=== PATIENT | male | born 1955 | race African-American/Black ===

== ENCOUNTER 2017-09-25 06:38 | Day surgery (SDC) | payer OTHER ==
--- NOTE | 2017-09-17 09:52 | EKG REPORT ---
SEVERITY:- NORMAL ECG - SINUS RHYTHM : Confirmed by: Yanira Bhat MD 17-Sep-2017 09:52:00
[2017-09-17 10:07] LABS: APPEARANCE,URINE CLEAR; BILIRUBIN,URINE NEGATIVE (NEGATIVE); COLOR,URINE YELLOW; GLUCOSE, URINE NEGATIVE (NEGATIVE); KETONES,URINE NEGATIVE (NEGATIVE); LEUKOCYTE ESTERASE,URINE TRACE (NEGATIVE); NITRITE,URINE NEGATIVE (NEGATIVE); PROTEIN,URINE NEGATIVE (NEGATIVE); URINE SPECIFIC GRAVITY 1.015
[2017-09-17 10:07] LABS: HEMATOCRIT 42.3 % (37.9-51.0); HEMOGLOBIN 14.6 g/dL (13.5-17.0); MEAN CORPUSCULAR HEMOGLOBIN 31.2 pg (27.0-33.4); MEAN CORPUSCULAR HGB CONC 34.6 g/dL (32.0-36.0); MEAN CORPUSCULAR VOLUME 90 fl (80-97); PLATELET COUNT 265 10^3/uL (150-450); RED CELL DISTRIBUTION WIDTH 12.6 % (11.5-14.0); WHITE BLOOD COUNT 6.6 10^3/uL (4.0-10.5)
--- NOTE | 2017-09-17 10:09 | RADIOLOGY REPORT (SQ) ---
EXAM DESCRIPTION: CHEST PA/LATERAL COMPLETED DATE/TIME: 09/17/2017 9:48 am REASON FOR STUDY: PRE OP COMPARISON: None. EXAM PARAMETERS: NUMBER OF VIEWS: two views TECHNIQUE: Digital Frontal and Lateral radiographic views of the chest acquired. RADIATION DOSE: NA LIMITATIONS: none FINDINGS: LUNGS AND PLEURA: No opacities, masses or pneumothorax. No pleural effusion. MEDIASTINUM AND HILAR STRUCTURES: No masses or contour abnormalities. HEART AND VASCULAR STRUCTURES: Heart normal size. No evidence for failure. BONES: No acute findings. HARDWARE: None in the chest. OTHER: No other significant finding. IMPRESSION: NO SIGNIFICANT RADIOGRAPHIC FINDING IN THE CHEST. TECHNICAL DOCUMENTATION: JOB ID: [id number] [employer]- All Rights Reserved Reading location - IP/workstation name: [email or web address]
[2017-09-17 10:41] LABS: ANION GAP 10 (5-19); BLOOD UREA NITROGEN 16 mg/dL (7-20); CALCIUM 9.8 mg/dL (8.4-10.2); CARBON DIOXIDE 29 mmol/L (22-30); CHLORIDE 105 mmol/L (98-107); GLUCOSE 90 mg/dL (75-110); POTASSIUM 3.9 mmol/L (3.6-5.0); SODIUM 143.7 mmol/L (137-145)
[~2017-09-25 06:38] MED LIST: CEFAZOLIN SODIUM 2 GM in DEXTROSE 5%-WATER 100 ML IV PRN; LACTATED RINGERS 1000 ML IV PRN; LIDOCAINE 0.5% INJ-PF (5 MG/ML) 50 ML SDV SUBCUT PRN
[2017-09-25] MEDS ORDERED: BUPIVACAINE HCL 0.5 % INJ/PF 30 ML SDV ONE (07:08)
[2017-09-25] MEDS ORDERED: PROPOFOL INJ 200 MG/20 ML VIAL IV ONE (07:22)
[2017-09-25] MEDS ORDERED: KETAMINE HCL INJ 500 MG/10 ML VIAL ONE (07:22)
[2017-09-25] MEDS ORDERED: MIDAZOLAM 2 MG/2 ML INJ ONE (07:22)
[2017-09-25] MEDS ORDERED: FENTANYL CITRATE INJ/PF 100 MCG/2 ML AMPUL ONE (07:23)
[2017-09-25] MEDS ORDERED: BUPIVACAINE HCL 0.5%-EPI 1:200000 INJ/PF 30 ML VIAL ONE (07:31)
[2017-09-25] MEDS ORDERED: EPHEDRINE SULFATE INJ 50 MG/1 ML AMPULE ONE (09:05)
[2017-09-25] MEDS ORDERED: MEPERIDINE HCL/PF INJ 25 MG/1 ML DISP.SYRIN IV PRN (09:07)
[2017-09-25] MEDS ORDERED: FENTANYL CITRATE INJ/PF 100 MCG/2 ML AMPUL IV PRN ×3 (09:07)
[2017-09-25] MEDS ORDERED: PROMETHAZINE HCL INJ 25 MG/1 ML VIAL IV PRN ×2 (09:07)
[2017-09-25] MEDS ORDERED: OXYCODONE-ACETAMINOPHEN 5-325 MG TABLET PO PRN ×2 (09:07)
[2017-09-25] MEDS ORDERED: DIPHENHYDRAMINE HCL 50 MG/ML VIAL IV PRN (09:07)
[2017-09-25] MEDS ORDERED: TRANEXAMIC ACID INJ/PF 1,000 MG/10 ML SDV IV ONE (09:40)
--- NOTE | 2017-09-25 09:47 | Operative Report ---
Operative Report DATE OF SURGERY: 09/25/17 PREOPERATIVE DIAGNOSIS: Complicated left periarticular knee ganglion OPERATION: Excision of left periarticular knee ganglion SURGEON: CAMDEN RILEY ANESTHESIA: GA TISSUE REMOVED OR ALTERED: Ganglion to pathology ESTIMATED BLOOD LOSS: 25 PROCEDURE: With the patient supine position of the tip of left lower extremity is prepped and draped in sterile fashion. Limb was elevated for exsanguination tourniquet inflated 280 torr. A sigmoid type incision is made beginning in the popliteal fossa extending laterally and distally across the proximal lateral tibia and extending to the region of the tibial tubercle. Sharp dissection was carried incision down to the 25 cm multiloculated ganglion. The multiloculated ganglion is enucleated from superficial to deep. The peroneal nerve is identified coming behind the hamstring tendon and is protected throughout its course down to the fibula. The ganglion is excised. Its deep margin is the knee capsule. Its delivered from the field. The tourniquet is deflated. The wound is irrigated. Hemostasis obtained with electrocautery. A 15 Luis Armando drain is placed. The wound was then closed using Vicryl followed by nylon. A sterile compressive dressing was applied and the patient's return to PACU in satisfactory condition.
[2017-09-25] MEDS ORDERED: OXYCODONE HCL IR 5 MG TABLET PO PRN (10:28)
[2017-09-25] MEDS ORDERED: ONDANSETRON 4 MG TAB.RAPDIS SL PRN (10:29)
[2017-09-25] MEDS ORDERED: ALBUTEROL SULFATE 0.083% NEB 2.5 MG/3 ML AMPUL NEB ONE (10:29)
[2017-09-25] MEDS ORDERED: DEXAMETHASONE SOD PHOSPHATE INJ 4 MG/1 ML VIAL ONE (11:42)
[2017-09-25] MEDS ORDERED: GLYCOPYRROLATE 1 MG/5 ML SYRINGE ONE (11:42)
[2017-09-25] MEDS ORDERED: ONDANSETRON HCL INJ/PF 4 MG/2 ML SDV ONE (11:42)
[2017-09-25 12:37] VITALS: BP 131/88
== END 2017-09-25 12:25 | disposition home or self-care (01) ==
LOC: OROUT 06:38
PROVIDERS: ATTEND Orthopaedic Surgery
DX: M67.462 Ganglion, left knee (principal); M17.12 Unilateral primary osteoarthritis, left knee; I10 Essential (primary) hypertension; F17.210 Nicotine dependence, cigarettes, uncomplicated; Z79.899 Other long term (current) drug therapy
CPT/HCPCS: 93005; 36415 ×2; 84132; 85027; 80048; 81001; 88304 ×2; 71046; 93010; 27345; J2250; J3490 ×5; J0690; J1100; J3010; J2405; J2704; 1400

== ENCOUNTER → 2017-11-26 | Outpatient (CLI) | payer OTHER ==
[2017-11-26 09:58] LABS: ABSOLUTE MONOCYTES (AUTO) 0.9 10^3/uL (0.1-1.4); APPEARANCE,URINE SLIGHTLY-CLOUDY; BASOPHILS % (AUTO) 0.5 % (0-2); BILIRUBIN,URINE SMALL (NEGATIVE); COLOR,URINE YELLOW; EOSINOPHILS % (AUTO) 0.3 % (0-6); GLUCOSE, URINE NEGATIVE (NEGATIVE); HEMATOCRIT 39.9 % (37.9-51.0); HEMOGLOBIN 13.7 g/dL (13.5-17.0); KETONES,URINE NEGATIVE (NEGATIVE); LEUKOCYTE ESTERASE,URINE MODERATE (NEGATIVE); LYMPHOCYTES % (AUTO) 14.4 % (13-45); MEAN CORPUSCULAR HEMOGLOBIN 30.4 pg (27.0-33.4); MEAN CORPUSCULAR HGB CONC 34.3 g/dL (32.0-36.0); MEAN CORPUSCULAR VOLUME 89 fl (80-97); MONOCYTES % (AUTO) 13.2 % (3-13); NITRITE,URINE NEGATIVE (NEGATIVE); PLATELET COUNT 277 10^3/uL (150-450); PROTEIN,URINE NEGATIVE (NEGATIVE); RED BLOOD COUNT 4.49 10^6/uL (4.35-5.55); SEGMENTED NEUTROPHILS % (AUTO) 71.6 % (42-78); TOTAL CELLS COUNTED % (AUTO) 100 %; URINE SPECIFIC GRAVITY 1.024
[2017-11-26 10:29] LABS: ANION GAP 14 (5-19); BLOOD UREA NITROGEN 13 mg/dL (7-20); CALCIUM 9.7 mg/dL (8.4-10.2); CARBON DIOXIDE 26 mmol/L (22-30); CHLORIDE 103 mmol/L (98-107); GLUCOSE 107 mg/dL (75-110); POTASSIUM 3.4 mmol/L (3.6-5.0); SODIUM 142.8 mmol/L (137-145)
--- NOTE | 2017-11-26 10:50 | RADIOLOGY REPORT (SQ) ---
EXAM DESCRIPTION: CHEST PA/LATERAL COMPLETED DATE/TIME: 11/26/2017 9:40 am REASON FOR STUDY: PRE-OP COMPARISON: 09/17/2017 EXAM PARAMETERS: NUMBER OF VIEWS: two views TECHNIQUE: Digital Frontal and Lateral radiographic views of the chest acquired. RADIATION DOSE: NA LIMITATIONS: none FINDINGS: LUNGS AND PLEURA: No opacities, masses or pneumothorax. No pleural effusion. MEDIASTINUM AND HILAR STRUCTURES: No masses or contour abnormalities. HEART AND VASCULAR STRUCTURES: Heart normal size. No evidence for failure. BONES: No acute findings. HARDWARE: None in the chest. OTHER: No other significant finding. IMPRESSION: NO SIGNIFICANT RADIOGRAPHIC FINDING IN THE CHEST. TECHNICAL DOCUMENTATION: JOB ID: [id number] [employer]- All Rights Reserved Reading location - IP/workstation name: [email or web address]
--- NOTE | 2017-11-26 13:53 | EKG REPORT ---
SEVERITY:- NORMAL ECG - SINUS RHYTHM : Confirmed by: Mario Campo MD 26-Nov-2017 13:53:08
== END ==
LOC: OD 08:31
PROVIDERS: ATTEND Orthopaedic Surgery
DX: Z01.818 Encounter for other preprocedural examination (principal)
CPT/HCPCS: 36415; 71046; 80048; 81001; 85025; 93005; 93010

== ENCOUNTER → 2017-12-09 | Day surgery (SDC) | payer OTHER ==
[~2017-12-09] MED LIST changes: +CEFAZOLIN 2 GM/D5W RTU 2 GM/50 ML RTUPB IV PRN; -CEFAZOLIN SODIUM 2 GM in DEXTROSE 5%-WATER 100 ML IV PRN; -LACTATED RINGERS 1000 ML IV PRN; -LIDOCAINE 0.5% INJ-PF (5 MG/ML) 50 ML SDV SUBCUT PRN; +POTASSI CL 20 MEQ/50 ML RIDER 20 MEQ/50 ML RTUPB IV ONE; +POTASSIUM CHLORIDE 20 MEQ/50 ML RTU IV SCH
[2017-12-09 10:36] VITALS: BP 117/75
== END ==
LOC: OROUT 09:54
PROVIDERS: ATTEND Orthopaedic Surgery
DX: E87.6 Hypokalemia (principal)
CPT/HCPCS: 36415; 84132; J3480; J0690

== ENCOUNTER 2017-12-11 13:00 | Day surgery (SDC) | payer OTHER ==
[~2017-12-11 13:00] MED LIST changes: -POTASSI CL 20 MEQ/50 ML RIDER 20 MEQ/50 ML RTUPB IV ONE; -POTASSIUM CHLORIDE 20 MEQ/50 ML RTU IV SCH
[2017-12-11] MEDS ORDERED: KETAMINE HCL INJ 500 MG/10 ML VIAL ONE (15:26)
[2017-12-11] MEDS ORDERED: FENTANYL CITRATE INJ/PF 100 MCG/2 ML AMPUL ONE ×2 (15:26→16:58)
[2017-12-11] MEDS ORDERED: MIDAZOLAM 2 MG/2 ML INJ ONE (15:26)
[2017-12-11] MEDS ORDERED: ACETAMINOPHEN 1,000 MG/100 ML RTUPB IV ONE (15:27)
[2017-12-11] MEDS ORDERED: EPHEDRINE SULFATE INJ 50 MG/1 ML AMPULE ONE (15:27)
[2017-12-11] MEDS ORDERED: DEXMEDETOMIDINE INJ 80 MCG/20 ML VIAL IV ONE (15:27)
[2017-12-11] MEDS ORDERED: PROPOFOL INJ 200 MG/20 ML VIAL IV ONE (15:27)
[2017-12-11] MEDS ORDERED: BUPIVACAINE HCL 0.5 % INJ/PF 30 ML SDV ONE (15:29)
[2017-12-11] MEDS ORDERED: KETOROLAC TROMETHAMINE 60 MG/2 ML SDV ONE (15:31)
[2017-12-11] MEDS ORDERED: ONDANSETRON HCL INJ/PF 4 MG/2 ML SDV ONE (15:31)
[2017-12-11] MEDS ORDERED: DEXAMETHASONE SOD PHOSPHATE INJ 4 MG/1 ML VIAL ONE (15:31)
[2017-12-11] MEDS ORDERED: LIDOCAINE 1%/EPINEPHRINE INJ 20 ML VIAL ONE (15:35)
[2017-12-11] MEDS ORDERED: NORMAL SALINE IV PRN ×2 (15:45)
[2017-12-11] MEDS ORDERED: POTASSIUM CHLORIDE IV PRN ×2 (15:45)
[2017-12-11] MEDS ORDERED: BACITRACIN INJ 50,000 UNIT VIAL ONE (15:49)
[2017-12-11] MEDS ORDERED: PROMETHAZINE HCL INJ 25 MG/1 ML VIAL IV PRN ×2 (16:10)
[2017-12-11] MEDS ORDERED: MORPHINE SULFATE 10 MG/ML INJ IV PRN (16:10)
[2017-12-11] MEDS ORDERED: MEPERIDINE HCL/PF INJ 25 MG/1 ML DISP.SYRIN IV PRN (16:10)
[2017-12-11] MEDS ORDERED: DIPHENHYDRAMINE HCL 50 MG/ML VIAL IV PRN (16:10)
[2017-12-11] MEDS ORDERED: FENTANYL CITRATE INJ/PF 100 MCG/2 ML AMPUL IV PRN ×3 (16:10)
--- NOTE | 2017-12-11 16:38 | Discharge Summary ---
Discharge Summary (SDC) - Discharge Final Diagnosis: Left knee ganglion Date of Surgery: 12/11/17 Discharge Date: 12/11/17 Condition: Good Treatment or Instructions: Weightbearing as tolerated Prescriptions: Oxycodone HCl 5 mg PO Q6 #60 tablet Referrals: SEB CARLSON MD [Primary Care Provider] - Discharge Diet: As Tolerated, Regular Respiratory Treatments at Home: Deep Breathing/Coughing, Incentive Spirometer Discharge Activity: Balance Activity w/Rest, No Driving, No tub bath Activities Provided by Home Health Agency: [facility] Physical Therapy Adaptive Devices on Discharge: Rolling Walker, Bedside Commode Report the Following to Your Physician Immediately: Shortness of Breath, Fever over 101 Degrees, Drainage-Foul Smelling
--- NOTE | 2017-12-11 16:40 | Operative Report ---
Operative Report DATE OF SURGERY: 12/11/17 PREOPERATIVE DIAGNOSIS: Left knee synovial ganglion status post I&D now with synovial fluid leak OPERATION: Irrigation debridement, cultures, and repeat closure SURGEON: CAMDEN RILEY ANESTHESIA: GA TISSUE REMOVED OR ALTERED: Cultures to microbiology ESTIMATED BLOOD LOSS: Minimal PROCEDURE: The patient supine on the operating room table left lower extremity prepped and draped in sterile fashion. Limb was elevated for exsanguination tourniquet inflated 280 torr. A curvilinear incision is made around the lateral border of the knee in line with a previous surgical approach. The leaking sinus tract is excised elliptically. Cultures are sent. The wound is debrided meticulously. Is irrigated with 6 L of normal saline containing bacitracin. Subsequent closed with PDS and nylon. A sterile compressive dressing was applied and the patient's return to PACU in satisfactory condition.
[2017-12-11] MEDS ORDERED: OXYCODONE-ACETAMINOPHEN 5-325 MG TABLET ONE (17:44)
[2017-12-11] MEDS ORDERED: METOPROLOL TARTRATE PF/INJ 5 MG/5 ML SDV IV ONE (18:08)
[2017-12-11 18:58] VITALS: BP 139/84
== END 2017-12-11 18:50 | disposition home or self-care (01) ==
LOC: OROUT 13:00
PROVIDERS: ATTEND Orthopaedic Surgery
DX: M17.12 Unilateral primary osteoarthritis, left knee (principal); M67.462 Ganglion, left knee; I10 Essential (primary) hypertension; F17.210 Nicotine dependence, cigarettes, uncomplicated; M25.562 Pain in left knee; Z79.899 Other long term (current) drug therapy
CPT/HCPCS: 36415; 87070; 87205; 84132; 87075; 87077; 87186; 10060; J2250; J3490 ×6; J1100; J1885; J3010; J3480; J2405; J7050; J2704; J0690; J0131; 1400

== ENCOUNTER → 2017-12-19 | Outpatient (CLI) | payer OTHER ==
[2017-12-19 11:49] LABS: HEMATOCRIT 31.7 % (37.9-51.0); HEMOGLOBIN 10.5 g/dL (13.5-17.0); MEAN CORPUSCULAR HEMOGLOBIN 29.5 pg (27.0-33.4); MEAN CORPUSCULAR HGB CONC 33.2 g/dL (32.0-36.0); MEAN CORPUSCULAR VOLUME 89 fl (80-97); PLATELET COUNT 524 10^3/uL (150-450); RED BLOOD COUNT 3.58 10^6/uL (4.35-5.55); WHITE BLOOD COUNT 9.5 10^3/uL (4.0-10.5)
[2017-12-19 12:08] LABS: ANION GAP 11 (5-19); BLOOD UREA NITROGEN 17 mg/dL (7-20); CALCIUM 9.9 mg/dL (8.4-10.2); CARBON DIOXIDE 28 mmol/L (22-30); CHLORIDE 104 mmol/L (98-107); GLUCOSE 105 mg/dL (75-110); POTASSIUM 4.5 mmol/L (3.6-5.0)
[2017-12-19 12:54] LABS: APPEARANCE,URINE CLEAR; COLOR,URINE YELLOW
[2017-12-19 12:55] LABS: ADD MANUAL MICROSCOPIC YES; BILIRUBIN,URINE MODERATE (NEGATIVE); GLUCOSE, URINE NEGATIVE (NEGATIVE); KETONES,URINE NEGATIVE (NEGATIVE); LEUKOCYTE ESTERASE,URINE LARGE (NEGATIVE); NITRITE,URINE NEGATIVE (NEGATIVE); PROTEIN,URINE NEGATIVE (NEGATIVE); URINE SPECIFIC GRAVITY 1.027
[2017-12-19 12:56] LABS: CALCIUM OXALATE CRYSTALS,UR FEW /HPF; WBC,URINE 20-30 /HPF
== END ==
LOC: OD 11:04 → EDSTATUS 12-30 07:30
PROVIDERS: ATTEND Orthopaedic Surgery
DX: Z01.812 Encounter for preprocedural laboratory examination (principal); M17.12 Unilateral primary osteoarthritis, left knee
CPT/HCPCS: 36415; 80048; 81001; 85027

== ENCOUNTER → 2018-03-24 | Outpatient (CLI) | payer OTHER ==
--- NOTE | 2018-03-24 09:26 | RADIOLOGY REPORT (SQ) ---
EXAM DESCRIPTION: CHEST PA/LATERAL COMPLETED DATE/TIME: 03/24/2018 8:38 am REASON FOR STUDY: PRE-OP COMPARISON: None. EXAM PARAMETERS: NUMBER OF VIEWS: two views TECHNIQUE: Digital Frontal and Lateral radiographic views of the chest acquired. RADIATION DOSE: NA LIMITATIONS: none FINDINGS: LUNGS AND PLEURA: No opacities, masses or pneumothorax. No pleural effusion. MEDIASTINUM AND HILAR STRUCTURES: No masses or contour abnormalities. HEART AND VASCULAR STRUCTURES: Heart normal size. No evidence for failure. BONES: No acute findings. HARDWARE: None in the chest. OTHER: No other significant finding. IMPRESSION: NO SIGNIFICANT RADIOGRAPHIC FINDING IN THE CHEST. TECHNICAL DOCUMENTATION: JOB ID: [id number] [employer]- All Rights Reserved Reading location - IP/workstation name: [email or web address]
[2018-03-24 09:32] LABS: ABSOLUTE EOSINOPHILS # (AUTO) 0.1 10^3/uL (0.0-0.6); ABSOLUTE LYMPHOCYTES (AUTO) 1.4 10^3/uL (0.5-4.7); ABSOLUTE MONOCYTES (AUTO) 0.7 10^3/uL (0.1-1.4); ABSOLUTE NEUT (AUTO) 6.2 10^3/uL (1.7-8.2); BASOPHILS % (AUTO) 0.5 % (0-2); EOSINOPHILS % (AUTO) 0.7 % (0-6); HEMATOCRIT 29.1 % (37.9-51.0); HEMOGLOBIN 9.4 g/dL (13.5-17.0); LYMPHOCYTES % (AUTO) 16.6 % (13-45); MEAN CORPUSCULAR HEMOGLOBIN 25.4 pg (27.0-33.4); MEAN CORPUSCULAR HGB CONC 32.4 g/dL (32.0-36.0); MEAN CORPUSCULAR VOLUME 78 fl (80-97); PLATELET COUNT 593 10^3/uL (150-450); RED BLOOD COUNT 3.71 10^6/uL (4.35-5.55); RED CELL DISTRIBUTION WIDTH 16.2 % (11.5-14.0); SEGMENTED NEUTROPHILS % (AUTO) 74.2 % (42-78); TOTAL CELLS COUNTED % (AUTO) 100 %; WHITE BLOOD COUNT 8.4 10^3/uL (4.0-10.5)
[2018-03-24 09:58] LABS: ANION GAP 16 (5-19); BLOOD UREA NITROGEN 18 mg/dL (7-20); CARBON DIOXIDE 27 mmol/L (22-30); CHLORIDE 101 mmol/L (98-107); GLUCOSE 107 mg/dL (75-110); POTASSIUM 4.3 mmol/L (3.6-5.0)
[2018-03-24 10:15] LABS: ERYTHROCYTE SEDIMENTATION RATE 109 mm/hr (0-20)
--- NOTE | 2018-03-24 11:31 | EKG REPORT ---
SEVERITY:- ABNORMAL ECG - SINUS RHYTHM LEFT VENTRICULAR HYPERTROPHY : Confirmed by: Yanira Bhat MD 24-Mar-2018 11:31:04
[2018-03-24 11:57] LABS: APPEARANCE,URINE CLOUDY; BILIRUBIN,URINE NEGATIVE (NEGATIVE); COLOR,URINE YELLOW; GLUCOSE, URINE NEGATIVE (NEGATIVE); KETONES,URINE NEGATIVE (NEGATIVE); LEUKOCYTE ESTERASE,URINE NEGATIVE (NEGATIVE); NITRITE,URINE NEGATIVE (NEGATIVE); PROTEIN,URINE NEGATIVE (NEGATIVE); URINE SPECIFIC GRAVITY 1.008
== END ==
LOC: OD 08:00
PROVIDERS: ATTEND Orthopaedic Surgery
DX: Z01.810 Encounter for preprocedural cardiovascular examination (principal); Z01.812 Encounter for preprocedural laboratory examination; Z01.818 Encounter for other preprocedural examination
CPT/HCPCS: 36415; 71046; 80048; 81001; 85025; 85652; 86140; 93005; 93010

== ENCOUNTER 2018-04-21 07:27 | Inpatient (IN) | payer OTHER ==
--- NOTE | 2018-04-14 10:33 | Physician Advisory Note ---
Physician Advisor ProgressNote .: Pursuant to the plan for Nimco Barboza, I have reviewed the medical record for this patient. Physician Advisor Statement: Surgical necessity: H&P (or addendum) needs to include all below: A. all non-surgical measures tried, w/details (what, how long, results, ...) B. ADLs interfered with by the OA, & what safety hazards are posed by the current joint disease, C. specific pre-op x-ray/scan findings present that [facility] looks for: subchondral cysts, subchondral sclerosis, periarticular osteophytes, joint space narrowing, joint subluxation, AVN/osteonecrosis). D. Please also state what sx are due to the OA as opposed to just due to the ganglion cyst. Denise's LCD for TKA does not list ganglion cyst as a reason for which TKA is covered by [facility] (& [place] insurance sometimes declines to cover after the fact, shifting payment to [facility] instead, so we need to have documentation that will pass muster for both). Status: 62yo [place] pt with HTN, TIAs, anemia, tobacco abuse, severe knee pain, recurrent ganglion cyst problems, open wound with repeated surgical interventions for that over the past few months. Has effusion, & is not expected to be ready/safe for d/c the day after surgery - expected to progress more slowly than that post-op. PROMIS score now only 16, down from 33 in Dec. Therefore, appropriate for Inpt status. Thanks! CK
[~2018-04-21 07:27] MED LIST changes: +BUPIVACAINE INJ/PF LIPOSOME/PF 266 MG/20 ML SDV IJ PRN; -CEFAZOLIN 2 GM/D5W RTU 2 GM/50 ML RTUPB IV PRN; +CEFAZOLIN INJ 1 GM VIAL IV PRN; +IBUPROFEN 800 MG/NS 250 ML IV PRN; +LACTATED RINGERS 1000 ML IV PRN; +LANSOPRAZOLE 15 MG TAB.RAP.DR PO PRN; +LIDOCAINE 0.5% INJ-PF (5 MG/ML) 50 ML SDV SUBCUT PRN; +OXYCODONE HCL SR 10 MG TABLET PO PRN; +VANCOMYCIN HCL 1,000 MG in DEXTROSE 5%-WATER 250 ML IV PRN
[2018-04-21] MEDS ORDERED: LANSOPRAZOLE 15 MG TAB.RAP.DR ONE (07:46)
[2018-04-21] MEDS ORDERED: CEFAZOLIN INJ 1 GM VIAL ONE (07:47)
[2018-04-21] MEDS ORDERED: OXYCODONE HCL SR 10 MG TABLET PO ONE (07:47)
[2018-04-21 09:26] LABS: HEMATOCRIT 29.3 % (37.9-51.0); HEMOGLOBIN 9.2 g/dL (13.5-17.0); MEAN CORPUSCULAR HGB CONC 31.5 g/dL (32.0-36.0); MEAN CORPUSCULAR VOLUME 76 fl (80-97); PLATELET COUNT 417 10^3/uL (150-450); RED BLOOD COUNT 3.85 10^6/uL (4.35-5.55); RED CELL DISTRIBUTION WIDTH 16.7 % (11.5-14.0); WHITE BLOOD COUNT 8.4 10^3/uL (4.0-10.5)
[2018-04-21] MEDS ORDERED: BUPIVACAINE HCL/DEX-WATER/PF 15 MG/2 ML AMPULE ONE (09:39)
[2018-04-21] MEDS ORDERED: LIDOCAINE 2% INJ-PF (20 MG/ML) 10 ML AMPUL ONE (09:40)
[2018-04-21] MEDS ORDERED: MIDAZOLAM 2 MG/2 ML INJ ONE (09:40)
[2018-04-21] MEDS ORDERED: FENTANYL CITRATE INJ/PF 100 MCG/2 ML AMPUL ONE (09:40)
[2018-04-21] MEDS ORDERED: ONDANSETRON HCL INJ/PF 4 MG/2 ML SDV ONE (09:41)
[2018-04-21] MEDS ORDERED: DEXAMETHASONE SOD PHOSPHATE INJ 4 MG/1 ML VIAL ONE (09:41)
[2018-04-21] MEDS ORDERED: BUPIVACAINE HCL 0.5%-EPI 1:200000 INJ/PF 30 ML VIAL ONE (09:41)
[2018-04-21] MEDS ORDERED: PROPOFOL INJ 200 MG/20 ML VIAL IV ONE (09:41)
[2018-04-21] MEDS ORDERED: ACETAMINOPHEN 1,000 MG/100 ML RTUPB IV ONE (09:41)
[2018-04-21] MEDS ORDERED: THROMBIN (BOVINE) TOPICAL 20000 UNIT VIAL ONE (10:01)
[2018-04-21] MEDS ORDERED: VANCOMYCIN HCL INJ 1000 MG VIAL ONE ×2 (10:31→11:01)
[2018-04-21] MEDS ORDERED: FENTANYL CITRATE INJ/PF 100 MCG/2 ML AMPUL IV PRN ×3 (10:49)
[2018-04-21] MEDS ORDERED: DIPHENHYDRAMINE HCL 50 MG/ML VIAL IV PRN ×2 (10:49→11:40)
[2018-04-21] MEDS ORDERED: MORPHINE SULFATE 10 MG/ML INJ IV PRN ×3 (10:49→11:40)
[2018-04-21] MEDS ORDERED: MEPERIDINE HCL/PF INJ 25 MG/1 ML DISP.SYRIN IV PRN (10:49)
[2018-04-21] MEDS ORDERED: ONDANSETRON HCL INJ/PF 4 MG/2 ML SDV IV PRN ×2 (10:49→11:40)
[2018-04-21] MEDS ORDERED: PROMETHAZINE HCL INJ 25 MG/1 ML VIAL IV PRN ×2 (10:49)
--- NOTE | 2018-04-21 11:39 | Operative Report ---
Operative Report DATE OF SURGERY: 04/21/18 PREOPERATIVE DIAGNOSIS: Left knee arthritis POSTOPERATIVE DIAGNOSIS: Suspected left knee pyarthrosis OPERATION: Synovectomy and implantation of antibiotic containing beads left knee SURGEON: CAMDEN RILEY ANESTHESIA: Spinal TISSUE REMOVED OR ALTERED: Cultures to microbiology. Tissue to pathology ESTIMATED BLOOD LOSS: 100 PROCEDURE: With the patient in supine position on the operative table left lower extremities prepped and draped in sterile fashion. Limb was elevated for exsanguination tourniquet inflated 280 torr. A median parapatellar approach knee is taken. Upon entering the knee joint there appears to be a significant inflammatory component with erosion of the joint surface as well as an aggressive synovitis. Cultures are taken. Synovium is sent to pathology for frozen section. Diagnosis returned as acute inflammation. Subsequently an aggressive synovectomy was performed throughout the knee. Wound is lex care with pulse lavage containing bacitracin. OsteoSet beads were mixed with vancomycin and placed into the knee. The wound was then closed using PDS and glory. A sterile compressive dressing and the patient's return to the PACU.
[2018-04-21] MEDS ORDERED: ZOLPIDEM TARTRATE 5 MG TABLET PO PRN (11:40)
[2018-04-21] MEDS ORDERED: RINGERS SOLUTION,LACTATED 1,000 ML IV PRN (11:40)
[2018-04-21] MEDS ORDERED: MAG HYDROX/AL HYDROX/SIMETH SUSP 30 ML UDCUP PO PRN (11:40)
[2018-04-21] MEDS ORDERED: ONDANSETRON 4 MG TAB.RAPDIS PO PRN (11:40)
[2018-04-21] MEDS ORDERED: TRANEXAMIC ACID INJ/PF 1,000 MG/10 ML SDV IV ONE (14:00)
[2018-04-21] MEDS ORDERED: VANCOMYCIN HCL 0 MG in DEXTROSE 5%-WATER 250 ML IV NR (14:00)
[2018-04-21] MEDS: MORPHINE SULFATE 10 MG/ML INJ IV PRN ×2 (15:58→17:17)
[2018-04-21] MEDS: SENNOSIDES/DOCUSATE 8.6-50 MG 1 EACH TABLET PO SCH (17:17)
[2018-04-21] MEDS: IBUPROFEN 800 MG in NORMAL SALINE 250 ML IV SCH (17:18)
[2018-04-21] MEDS ORDERED: (PENDING PHARMACY ID) (Atenolol [Atenolol] 100 MG) PO SCH (18:00)
[2018-04-21] MEDS ORDERED: ETODOLAC 500 MG PO SCH (18:00)
[2018-04-21] MEDS: VANCOMYCIN HCL 1,250 MG in DEXTROSE 5%-WATER 250 ML IV SCH (19:08)
[2018-04-21] MEDS: OXYCODONE HCL SR 10 MG TABLET PO SCH (21:11)
[2018-04-21] MEDS: ATENOLOL 50 MG TABLET PO SCH (21:12)
[2018-04-21] MEDS ORDERED: VANCOMYCIN HCL 1,000 MG in DEXTROSE 5%-WATER 250 ML IV ONE (23:40)
[2018-04-22] MEDS: IBUPROFEN 800 MG in NORMAL SALINE 250 ML IV SCH ×3 (03:01→18:04)
[2018-04-22] MEDS: LANSOPRAZOLE 30 MG TAB.RAP.DR PO SCH (05:56)
[2018-04-22] MEDS: VANCOMYCIN HCL 1,250 MG in DEXTROSE 5%-WATER 250 ML IV SCH ×2 (05:56→18:58)
[2018-04-22 06:15] LABS: HEMOGLOBIN 8.2 g/dL (13.5-17.0); MEAN CORPUSCULAR HEMOGLOBIN 23.8 pg (27.0-33.4); MEAN CORPUSCULAR HGB CONC 31.7 g/dL (32.0-36.0); MEAN CORPUSCULAR VOLUME 75 fl (80-97); PLATELET COUNT 404 10^3/uL (150-450); RED BLOOD COUNT 3.45 10^6/uL (4.35-5.55); RED CELL DISTRIBUTION WIDTH 16.2 % (11.5-14.0); WHITE BLOOD COUNT 10.2 10^3/uL (4.0-10.5)
[2018-04-22 06:40] LABS: ANION GAP 8 (5-19); BLOOD UREA NITROGEN 17 mg/dL (7-20); C-REACTIVE PROTEIN 79.9 mg/L (<10.0); CALCIUM 9.6 mg/dL (8.4-10.2); CARBON DIOXIDE 26 mmol/L (22-30); CHLORIDE 106 mmol/L (98-107); GLUCOSE 107 mg/dL (75-110); POTASSIUM 4.1 mmol/L (3.6-5.0); SODIUM 139.9 mmol/L (137-145)
--- NOTE | 2018-04-22 07:26 | PDOC PROGRESS REPORT ---
Subjective Progress Note for:: 04/22/18 Reason For Visit: PYARTHROSIS LEFT KNEE 62-year-old black male status post synovectomy of left knee for pyarthrosis postop day 1 Physical Exam Vital Signs: Temp Pulse Resp BP Pulse Ox 36.6 C 90 16 150/81 H 100 04/21/18 23:29 04/21/18 23:29 04/21/18 23:29 04/21/18 23:29 04/21/18 23:29 Intake & Output 04/21/18 04/22/18 04/23/18 06:59 06:59 06:59 Intake Total 4974 Output Total 480 Balance 4494 Weight 73.9 kg General appearance: PRESENT: mild distress, thin Head exam: PRESENT: normocephalic Respiratory exam: PRESENT: unlabored Cardiovascular exam: PRESENT: RRR Pulses: PRESENT: +1 pedal pulses bilateral Extremities exam: PRESENT: other - Left lower extremity dressing clean dry and intact Neurological exam: PRESENT: alert, awake, oriented to person, oriented to place, oriented to time, oriented to situation. ABSENT: motor sensory deficit Psychiatric exam: PRESENT: appropriate affect, normal mood. ABSENT: homicidal ideation, suicidal ideation Skin exam: PRESENT: dry, intact, warm. ABSENT: cyanosis, rash Results Laboratory Results: 04/22/18 05:55 04/22/18 05:55 04/21/18 04/21/18 04/21/18 07:29 07:57 07:57 WBC 8.4 RBC 3.85 L Hgb 9.2 L Hct 29.3 L MCV 76 L MCH 24.0 L MCHC 31.5 L RDW 16.7 H Plt Count 417 Sodium Potassium 4.0 Chloride Carbon Dioxide Anion Gap BUN Creatinine 0.73 Est GFR ( Amer) > 60 Est GFR (Non-Af Amer) > 60 Glucose Calcium C-Reactive Protein 04/22/18 04/22/18 05:55 05:55 WBC 10.2 RBC 3.45 L Hgb 8.2 L Hct 26.0 L MCV 75 L MCH 23.8 L MCHC 31.7 L RDW 16.2 H Plt Count 404 Sodium 139.9 Potassium 4.1 Chloride 106 Carbon Dioxide 26 Anion Gap 8 BUN 17 Creatinine 0.71 Est GFR ( Amer) > 60 Est GFR (Non-Af Amer) > 60 Glucose 107 Calcium 9.6 C-Reactive Protein 79.9 H Status: Imported from PACS Assessment & Plan - Diagnosis (1) Knee hemarthrosis, left Is this a current diagnosis for this admission?: Yes Plan: 62-year-old black male postop day 1 status post I&D with implantation of antibiotic containing beads into a left knee pyarthrosis. Intraoperative cultures and Gram stain are pending. Anticipate the need for prolonged IV antibiotics. - Time Time Spent with patient: 15-24 minutes Anticipated discharge: Home with Homehealth Within: Other
[2018-04-22 07:40] LABS: ERYTHROCYTE SEDIMENTATION RATE > 120 mm/hr (0-20)
[2018-04-22] MEDS: MORPHINE SULFATE 10 MG/ML INJ IV PRN ×3 (08:05→19:05)
[2018-04-22] MEDS: HYDROCHLOROTHIAZIDE 25 MG TABLET PO SCH (09:57)
[2018-04-22] MEDS: SENNOSIDES/DOCUSATE 8.6-50 MG 1 EACH TABLET PO SCH ×2 (09:58→18:04)
[2018-04-22] MEDS: LISINOPRIL 10 MG TABLET PO SCH (09:58)
[2018-04-22] MEDS: ASPIRIN 81 MG TABLET, ENT COATED PO SCH (09:59)
[2018-04-22] MEDS: PRENATAL VITAMIN W DHA CAPSULE PO SCH (09:59)
[2018-04-22] MEDS: ACETAMINOPHEN 325 MG TABLET PO PRN ×2 (09:59→18:04)
[2018-04-22] MEDS: AMLODIPINE BESYLATE 10 MG TABLET PO SCH (09:59)
[2018-04-22] MEDS: OXYCODONE HCL IR 5 MG TABLET PO PRN ×2 (09:59→18:03)
[2018-04-22] MEDS: OXYCODONE HCL SR 10 MG TABLET PO SCH ×2 (10:00→21:32)
[2018-04-22] MEDS ORDERED: LISINOPRIL 80 MG PO SCH (10:00)
[2018-04-22] MEDS: ATENOLOL 50 MG TABLET PO SCH ×2 (10:02→21:33)
[2018-04-22] MEDS ORDERED: POTASSIUM CHLORIDE 10 MEQ CAPSULE.ER PO ONE (19:02)
[2018-04-23] MEDS: IBUPROFEN 800 MG in NORMAL SALINE 250 ML IV SCH ×2 (02:36→11:11)
[2018-04-23] MEDS: LANSOPRAZOLE 30 MG TAB.RAP.DR PO SCH (05:18)
[2018-04-23 06:04] LABS: HEMATOCRIT 24.8 % (37.9-51.0); MEAN CORPUSCULAR HEMOGLOBIN 23.6 pg (27.0-33.4); MEAN CORPUSCULAR HGB CONC 31.1 g/dL (32.0-36.0); MEAN CORPUSCULAR VOLUME 76 fl (80-97); PLATELET COUNT 411 10^3/uL (150-450); RED BLOOD COUNT 3.26 10^6/uL (4.35-5.55); RED CELL DISTRIBUTION WIDTH 16.4 % (11.5-14.0)
[2018-04-23 06:13] LABS: HEMOGLOBIN 7.7 g/dL (13.5-17.0)
[2018-04-23] MEDS: VANCOMYCIN HCL 1,250 MG in DEXTROSE 5%-WATER 250 ML IV SCH ×2 (06:29→17:54)
[2018-04-23 06:31] LABS: VANCOMYCIN,TROUGH 12.7 ug/mL (5.0-20.0)
[2018-04-23] MEDS ORDERED: MAGNESIUM CITRATE 296 ML BOTTLE PO ONE (07:15)
[2018-04-23] MEDS ORDERED: ONDANSETRON HCL INJ/PF 4 MG/2 ML SDV IV PRN (07:30)
[2018-04-23] MEDS ORDERED: ONDANSETRON 4 MG TAB.RAPDIS PO PRN (07:30)
[2018-04-23] MEDS: OXYCODONE HCL IR 5 MG TABLET PO PRN ×2 (07:31→21:37)
[2018-04-23] MEDS: ACETAMINOPHEN 325 MG TABLET PO PRN ×2 (07:31→21:37)
[2018-04-23] MEDS: MORPHINE SULFATE 10 MG/ML INJ IV PRN (09:37)
[2018-04-23] MEDS: PRENATAL VITAMIN W DHA CAPSULE PO SCH (11:10)
[2018-04-23] MEDS: OXYCODONE HCL SR 10 MG TABLET PO SCH (11:10)
[2018-04-23] MEDS: AMLODIPINE BESYLATE 10 MG TABLET PO SCH (11:10)
[2018-04-23] MEDS: ASPIRIN 81 MG TABLET, ENT COATED PO SCH (11:10)
[2018-04-23] MEDS: SENNOSIDES/DOCUSATE 8.6-50 MG 1 EACH TABLET PO SCH ×2 (11:10→17:54)
[2018-04-23] MEDS: LISINOPRIL 10 MG TABLET PO SCH (11:11)
[2018-04-23] MEDS: HYDROCHLOROTHIAZIDE 25 MG TABLET PO SCH (11:11)
[2018-04-23] MEDS: ATENOLOL 50 MG TABLET PO SCH ×2 (11:12→21:42)
[2018-04-23] MEDS ORDERED: BISACODYL 5 MG TABEC PO ONE (17:30)
[2018-04-24] MEDS: ACETAMINOPHEN 325 MG TABLET PO PRN ×3 (03:20→23:02)
[2018-04-24] MEDS: OXYCODONE HCL IR 5 MG TABLET PO PRN ×4 (03:21→23:02)
[2018-04-24] MEDS: LANSOPRAZOLE 30 MG TAB.RAP.DR PO SCH (06:07)
[2018-04-24] MEDS: VANCOMYCIN HCL 1,250 MG in DEXTROSE 5%-WATER 250 ML IV SCH (06:08)
[2018-04-24 06:51] LABS: HEMATOCRIT 23.8 % (37.9-51.0); MEAN CORPUSCULAR HEMOGLOBIN 23.7 pg (27.0-33.4); MEAN CORPUSCULAR HGB CONC 31.4 g/dL (32.0-36.0); MEAN CORPUSCULAR VOLUME 75 fl (80-97); PLATELET COUNT 435 10^3/uL (150-450); RED BLOOD COUNT 3.16 10^6/uL (4.35-5.55); RED CELL DISTRIBUTION WIDTH 16.3 % (11.5-14.0); WHITE BLOOD COUNT 11.6 10^3/uL (4.0-10.5)
--- NOTE | 2018-04-24 06:58 | PDOC PROGRESS REPORT ---
Subjective Progress Note for:: 04/24/18 Reason For Visit: PYARTHROSIS LEFT KNEE 62-year-old black male now postop day 3 status post I&D of the left knee pyarthrosis. Cultures are showing gram-positive cocci in clusters Physical Exam Vital Signs: Temp Pulse Resp BP Pulse Ox 36.3 C 86 16 131/63 H 95 04/23/18 23:42 04/23/18 23:42 04/23/18 23:42 04/23/18 23:42 04/23/18 23:42 Intake & Output 04/22/18 04/23/18 04/24/18 06:59 06:59 06:59 Intake Total 4974 2985 2007 Output Total 480 Balance 4494 2985 2007 Weight 73.9 kg 73.9 kg 73.9 kg General appearance: PRESENT: no acute distress Head exam: PRESENT: normocephalic Respiratory exam: PRESENT: unlabored Cardiovascular exam: PRESENT: RRR Pulses: PRESENT: +1 pedal pulses bilateral Extremities exam: PRESENT: other - Dressing change this morning. Wound is well approximated with glory. Is clean dry and intact without erythema or drainage and minimal induration. Results Laboratory Results: 04/23/18 05:40 04/23/18 20:15 Stool Occult Blood NEGATIVE Assessment & Plan - Diagnosis (1) Knee hemarthrosis, left Is this a current diagnosis for this admission?: Yes Plan: Awaiting culture results prior to deciding upon ultimate antibiotic administration (2) Anemia Is this a current diagnosis for this admission?: Yes Plan: Stool guaiacs negative - Time Time Spent with patient: 15-24 minutes Anticipated discharge: Home with Homehealth
[2018-04-24 07:00] LABS: HEMOGLOBIN 7.5 g/dL (13.5-17.0)
[2018-04-24] MEDS ORDERED: NORMAL SALINE 250 ML IV PRN (07:04)
[2018-04-24] MEDS: AMLODIPINE BESYLATE 10 MG TABLET PO SCH (09:57)
[2018-04-24] MEDS: PRENATAL VITAMIN W DHA CAPSULE PO SCH (09:57)
[2018-04-24] MEDS: HYDROCHLOROTHIAZIDE 25 MG TABLET PO SCH (09:58)
[2018-04-24] MEDS: ATENOLOL 50 MG TABLET PO SCH ×2 (09:58→23:01)
[2018-04-24] MEDS: SENNOSIDES/DOCUSATE 8.6-50 MG 1 EACH TABLET PO SCH ×2 (09:58→17:07)
[2018-04-24] MEDS: LISINOPRIL 10 MG TABLET PO SCH (09:59)
[2018-04-24] MEDS: ASPIRIN 81 MG TABLET, ENT COATED PO SCH (09:59)
[2018-04-24] MEDS: VANCOMYCIN HCL 750 MG in DEXTROSE 5%-WATER 250 ML IV SCH ×2 (14:49→23:02)
[2018-04-25] MEDS: OXYCODONE HCL IR 5 MG TABLET PO PRN ×3 (05:09→20:51)
[2018-04-25] MEDS: ACETAMINOPHEN 325 MG TABLET PO PRN ×2 (05:09→20:50)
[2018-04-25] MEDS: VANCOMYCIN HCL 750 MG in DEXTROSE 5%-WATER 250 ML IV SCH (05:10)
[2018-04-25] MEDS: LANSOPRAZOLE 30 MG TAB.RAP.DR PO SCH (05:12)
--- NOTE | 2018-04-25 07:27 | PDOC PROGRESS REPORT ---
Subjective Progress Note for:: 04/25/18 Reason For Visit: PYARTHROSIS LEFT KNEE 62-year-old black male status post I&D of a left knee pyarthrosis with subsequent cultures growing MSSA Physical Exam Vital Signs: Temp Pulse Resp BP Pulse Ox 36.9 C 81 16 115/62 97 04/24/18 23:42 04/24/18 23:42 04/24/18 23:42 04/24/18 23:42 04/24/18 23:42 Intake & Output 04/24/18 04/25/18 04/26/18 06:59 06:59 06:59 Intake Total 2007 2155 Balance 2007 2155 Weight 73.9 kg 74.8 kg General appearance: PRESENT: no acute distress Respiratory exam: PRESENT: unlabored Cardiovascular exam: PRESENT: RRR Extremities exam: PRESENT: other - Left knee wound is clean dry and intact Results Laboratory Results: 04/24/18 06:08 04/23/18 05:40 04/24/18 07:29 Blood Type AB POSITIVE Antibody Screen NEGATIVE Assessment & Plan - Diagnosis (1) Knee hemarthrosis, left Is this a current diagnosis for this admission?: Yes Plan: Cultures growing MSSA. Vancomycin discontinued and Levaquin started. PICC line ordered. Anticipate 2 weeks of IV home antibiotic therapy. (2) Anemia Is this a current diagnosis for this admission?: Yes Plan: Heme-onc consult pending - Time Time Spent with patient: 15-24 minutes
--- NOTE | 2018-04-25 08:42 | PDOC CONSULTATION ---
Consultation Consult Date: 04/25/18 Attending physician:: CAMDEN RILEY Consult reason:: Anemia History of Present Illness Admission Date/PCP: 04/21/18 07:[facility] Patient complains of: Left knee pain History of Present Illness: PAOLO ALEXANDER is a 62 year old male who presented with left knee pyarthrosis, status post left knee synovectomy and implantation of antibiotic beads, of note on presentation his hemoglobin was 9.2, with a decreased MCV in the 70s, during surgery it is only recorded that he had 100 cc blood loss, his hemoglobin however has dropped since 3 days from 9.2-7.5, MCV is dropped as well. He was given 2 units of packed red blood cells yesterday evening, he does not have a CBC done yet this morning I ordered that. In addition I added iron studies on to labs done yesterday morning before the transfusion. Of note he did have one episode of black tarry stool about 3-4 weeks prior to admission. But no other complaints of hematochezia or bleeding. Past Medical History Cardiac Medical History: Reports: Hypertension Denies: Atrial Fibrillation, Congestive Heart Failure, Coronary Artery Disease, Myocardial Infarction, Hyperlipidema, Peripheral Vascular Disease, Heart Murmur Pulmonary Medical History: Denies: Asthma, Bronchitis, Chronic Obstructive Pulmonary Disease (COPD), Pneumonia, Sleep Apnea Neurological Medical History: Denies: Seizures Endocrine Medical History: Denies: Hyperthyroidism, Hypothyroidism GI Medical History: Denies: Gastroesophageal Reflux Disease Musculoskeltal Medical History: Reports: Arthritis - LOWER BACK, GENERALIZED Denies: Fibromyalgia Psychiatric Medical History: Denies: Dementia Hematology: Denies: Anemia Past Surgical History Past Surgical History: Reports: Herniorrhaphy Denies: Appendectomy, Cholecystectomy, Coronary Artery Bypass Graft, Gastric Bypass Surgery, Pacemaker, Tonsillectomy Social History Information Source: Patient Smoking Status: Current Every Day Smoker Cigarettes Packs Per Day: 0.3 Hx Recreational Drug Use: No Hx Prescription Drug Abuse: No - Advance Directive Resuscitation Status: Full Code Family History Family History: None Parental Family History Reviewed: Yes Children Family History Reviewed: Yes Sibling(s) Family History Reviewed.: Yes Medication/Allergy Home Medications: Amlodipine Besylate 10 mg PO DAILY 09/17/17 Atenolol 100 mg PO BID 09/17/17 Etodolac 500 mg PO BID 09/17/17 Hydrochlorothiazide 25 mg PO DAILY 09/17/17 Lisinopril 80 mg PO DAILY 09/17/17 Allergies/Adverse Reactions: No Known Allergies Allergy (Verified 03/31/18 14:04) Review of Systems Constitutional: ABSENT: chills, fever(s), headache(s), weight gain, weight loss Eyes: ABSENT: visual disturbances Ears: ABSENT: hearing changes Cardiovascular: ABSENT: chest pain, dyspnea on exertion, edema, orthropnea, palpitations Respiratory: ABSENT: cough, hemoptysis Gastrointestinal: ABSENT: abdominal pain, constipation, diarrhea, hematemesis, hematochezia, nausea, vomiting Genitourinary: ABSENT: dysuria, hematuria Musculoskeletal: ABSENT: joint swelling Integumentary: ABSENT: rash, wounds Neurological: ABSENT: abnormal gait, abnormal speech, confusion, dizziness, focal weakness, syncope Psychiatric: ABSENT: anxiety, depression, homidical ideation, suicidal ideation Endocrine: ABSENT: cold intolerance, heat intolerance, polydipsia, polyuria Hematologic/Lymphatic: ABSENT: easy bleeding, easy bruising Physical Exam Vital Signs: Temp Pulse Resp BP Pulse Ox 98.5 F 81 16 115/62 97 04/24/18 23:42 04/24/18 23:42 04/24/18 23:42 04/24/18 23:42 04/24/18 23:42 Intake & Output 04/24/18 04/25/18 04/26/18 06:59 06:59 06:59 Intake Total 2007 2156 250 Balance 2007 215 250 Weight 73.9 kg 74.8 kg General appearance: PRESENT: no acute distress, well-developed, well-nourished Head exam: PRESENT: atraumatic, normocephalic Eye exam: PRESENT: conjunctiva pink, EOMI, PERRLA. ABSENT: scleral icterus Ear exam: PRESENT: normal external ear exam Mouth exam: PRESENT: moist, tongue midline Neck exam: ABSENT: carotid bruit, JVD, lymphadenopathy, thyromegaly Respiratory exam: PRESENT: clear to auscultation maritza. ABSENT: rales, rhonchi, wheezes Cardiovascular exam: PRESENT: RRR. ABSENT: diastolic murmur, rubs, systolic murmur Pulses: PRESENT: normal dorsalis pedis pul Vascular exam: PRESENT: normal capillary refill GI/Abdominal exam: PRESENT: normal bowel sounds, soft. ABSENT: distended, guarding, mass, organolmegaly, rebound, tenderness Rectal exam: PRESENT: deferred Extremities exam: ABSENT: calf tenderness, clubbing, pedal edema Musculoskeletal exam: PRESENT: other - Left knee swelling Neurological exam: PRESENT: alert, awake, oriented to person, oriented to place, oriented to time, oriented to situation, CN II-XII grossly intact. ABSENT: motor sensory deficit Psychiatric exam: PRESENT: appropriate affect, normal mood. ABSENT: homicidal ideation, suicidal ideation Skin exam: PRESENT: dry, intact, warm. ABSENT: cyanosis, rash Results Laboratory Results: 04/24/18 06:08 04/23/18 05:40 04/24/18 07:29 Blood Type AB POSITIVE Antibody Screen NEGATIVE Assessment & Plan - Diagnosis (1) Anemia Qualifiers: Anemia type: iron deficiency Iron deficiency anemia type: other iron deficiency Qualified Code(s): D50.8 - Other iron deficiency anemias Is this a current diagnosis for this admission?: Yes Plan: Probable iron deficiency anemia with a low MCV, iron studies drawn and pending. B12 also done. If these are normal then we will plan for outpatient hemoglobin electrophoresis. Repeat CBC done today and if appropriate response obtained, okay from hematologic standpoint to discharge home whenever ready from orthopedic condition and follow-up in our office in 2 weeks time. Nurse will call me with CBC. - Time Time Spent: Greater than 70 Minutes - Inpatient Certification Based on my medical assessment, after consideration of the patient's comorbidities, presenting symptoms, or acuity I expect that the services needed warrant INPATIENT care.: Yes I certify that my determination is in accordance with my understanding of Medic are's requirements for reasonable and necessary INPATIENT services [42 CFR 412.3e].: Yes Medical Necessity: Risk of Complication if Not Cared For in Hospital
[2018-04-25 09:31] LABS: HEMATOCRIT 27.4 % (37.9-51.0); MEAN CORPUSCULAR HGB CONC 32.7 g/dL (32.0-36.0); MEAN CORPUSCULAR VOLUME 76 fl (80-97); PLATELET COUNT 418 10^3/uL (150-450); RED BLOOD COUNT 3.59 10^6/uL (4.35-5.55); RED CELL DISTRIBUTION WIDTH 16.8 % (11.5-14.0); WHITE BLOOD COUNT 9.7 10^3/uL (4.0-10.5)
[2018-04-25 09:54] LABS: FOLATE 5.98 ng/mL (>2.76)
[2018-04-25 10:00] LABS: IRON(TIBC) < 10.1 ug/dL (49-181)
[2018-04-25] MEDS: HYDROCHLOROTHIAZIDE 25 MG TABLET PO SCH (10:01)
[2018-04-25] MEDS: PRENATAL VITAMIN W DHA CAPSULE PO SCH (10:01)
[2018-04-25] MEDS: ATENOLOL 50 MG TABLET PO SCH ×2 (10:01→21:34)
[2018-04-25] MEDS: AMLODIPINE BESYLATE 10 MG TABLET PO SCH (10:02)
[2018-04-25] MEDS: ASPIRIN 81 MG TABLET, ENT COATED PO SCH (10:02)
[2018-04-25] MEDS: LISINOPRIL 10 MG TABLET PO SCH (10:03)
[2018-04-25] MEDS: SENNOSIDES/DOCUSATE 8.6-50 MG 1 EACH TABLET PO SCH ×2 (10:04→17:21)
[2018-04-25 14:51] LABS: VANCOMYCIN,TROUGH 10.4 ug/mL (5.0-20.0)
--- NOTE | 2018-04-25 16:35 | RADIOLOGY REPORT (SQ) ---
EXAM DESCRIPTION: PICC INSERTION; FLUORO/CV PLACEMENT; U/S GUIDE FOR VASCULAR ACCESS COMPLETED DATE/TIME: 04/25/2018 4:23 pm REASON FOR STUDY: HOME ABX M17.12 UNILATERAL PRIMARY OSTEOARTHRITIS, LEFT KNEE COMPARISON: None. FLUOROSCOPY TIME: 42 seconds. 1 images saved to PACS. TECHNIQUE: Fluoroscopic and ultrasound guided PICC placement. LIMITATIONS: None. PROCEDURE: After written consent and assessment were obtained, the patient was brought into the fluo roscopy room and placed supine on the table. Ultrasound evaluation of potential access sites were per formed. After successfully identifying a patent left basilic vein, the left arm was prepped and drape d in a sterile fashion along with the ultrasound probe. The entry site was anesthetized with 1% lidoc jovana. A 21 gauge 7 cm needle was advanced through the skin and into the basilic vein under live ultra sound guidance. An ultrasound image was saved to PACS confirming access site. A .018 guide wire was then inserted through the needle and into the venous system. The needle was then removed and an 11 b lade scalpel was used to make a 1cm skin incision. A 5 fr peel-away sheath was advanced over the wir e and into the venous system. A measurement was then made using the existing wire and live fluoroscop ic guidance. The wire was then removed and trimmed. The PICC was advanced through the peel-away sheat h and into the venous system. The peel-away sheath was removed and the catheter was adhered to the pa tients arm with a stat lock. The catheter was then aspirated and flushed and a sterile bandage was pl aced over the access site. A fluoroscopic spot image was saved to PACS confirming the catheter tip w ithin the superior vena cava. IMPRESSION: SUCCESSFUL PLACEMENT OF A 5 FR DUAL LUMEN 47 CM PICC IN THE LEFT BASILIC VEIN. COMMENT: Patient medication list reviewed: Yes- Quality ID# 130:Eligible professional attests to doc umenting in the medical record they obtained, updated, or reviewed the patient's current medications. . Quality ID 145: Final reports for procedures using fluoroscopy that document radiation exposure nicanor todd, or exposure time and number of fluorographic images (if radiation exposure indices are not avail able) Quality ID #76: The patient was prepped and draped using maximum sterile barrier technique including cap, mask, sterile gown, sterile gloves, a large sterile sheet, hand hygiene, and 2% Chlorhexidine fo r cutaneous antisepsis. When ultrasound is used, sterile ultrasound techniques are followed requiring sterile gel and sterile probes. TECHNICAL DOCUMENTATION: JOB ID: [id number] [employer]- All Rights Reserved rev-08/30 Reading location - IP/workstation name: [email or web address]
--- NOTE | 2018-04-25 16:35 | RADIOLOGY REPORT (SQ) ---
EXAM DESCRIPTION: PICC INSERTION; FLUORO/CV PLACEMENT; U/S GUIDE FOR VASCULAR ACCESS COMPLETED DATE/TIME: 04/25/2018 4:23 pm REASON FOR STUDY: HOME ABX M17.12 UNILATERAL PRIMARY OSTEOARTHRITIS, LEFT KNEE COMPARISON: None. FLUOROSCOPY TIME: 42 seconds. 1 images saved to PACS. TECHNIQUE: Fluoroscopic and ultrasound guided PICC placement. LIMITATIONS: None. PROCEDURE: After written consent and assessment were obtained, the patient was brought into the fluo roscopy room and placed supine on the table. Ultrasound evaluation of potential access sites were per formed. After successfully identifying a patent left basilic vein, the left arm was prepped and drape d in a sterile fashion along with the ultrasound probe. The entry site was anesthetized with 1% lidoc ojvana. A 21 gauge 7 cm needle was advanced through the skin and into the basilic vein under live ultra sound guidance. An ultrasound image was saved to PACS confirming access site. A .018 guide wire was then inserted through the needle and into the venous system. The needle was then removed and an 11 b lade scalpel was used to make a 1cm skin incision. A 5 fr peel-away sheath was advanced over the wir e and into the venous system. A measurement was then made using the existing wire and live fluoroscop ic guidance. The wire was then removed and trimmed. The PICC was advanced through the peel-away sheat h and into the venous system. The peel-away sheath was removed and the catheter was adhered to the pa tients arm with a stat lock. The catheter was then aspirated and flushed and a sterile bandage was pl aced over the access site. A fluoroscopic spot image was saved to PACS confirming the catheter tip w ithin the superior vena cava. IMPRESSION: SUCCESSFUL PLACEMENT OF A 5 FR DUAL LUMEN 47 CM PICC IN THE LEFT BASILIC VEIN. COMMENT: Patient medication list reviewed: Yes- Quality ID# 130:Eligible professional attests to doc umenting in the medical record they obtained, updated, or reviewed the patient's current medications. . Quality ID 145: Final reports for procedures using fluoroscopy that document radiation exposure nicanor todd, or exposure time and number of fluorographic images (if radiation exposure indices are not avail able) Quality ID #76: The patient was prepped and draped using maximum sterile barrier technique including cap, mask, sterile gown, sterile gloves, a large sterile sheet, hand hygiene, and 2% Chlorhexidine fo r cutaneous antisepsis. When ultrasound is used, sterile ultrasound techniques are followed requiring sterile gel and sterile probes. TECHNICAL DOCUMENTATION: JOB ID: [id number] [employer]- All Rights Reserved rev-08/30 Reading location - IP/workstation name: [facility]
[2018-04-25] MEDS ORDERED: LEVOFLOXACIN 750 MG/D5W RTU 750 MG/150 ML RTUPB IV SCH (18:00)
[2018-04-26] MEDS ORDERED: NORMAL SALINE 10 ML SDV (AFTER EACH USE) IV PRN (03:30)
[2018-04-26] MEDS: ACETAMINOPHEN 325 MG TABLET PO PRN (06:28)
[2018-04-26] MEDS: OXYCODONE HCL IR 5 MG TABLET PO PRN ×3 (06:28→21:26)
[2018-04-26] MEDS: LANSOPRAZOLE 30 MG TAB.RAP.DR PO SCH (06:29)
--- NOTE | 2018-04-26 08:22 | PDOC PROGRESS REPORT ---
Subjective Progress Note for:: 04/26/18 Subjective:: Patient lying in bed comfortably. States his knee pain is notably improved has been able to ablate much more and has begun range of motion exercises. Denies fever chills or sweats. Reason For Visit: PYARTHROSIS LEFT KNEE Physical Exam Vital Signs: Temp Pulse Resp BP Pulse Ox 97.9 F 80 16 116/71 97 04/26/18 02:47 04/26/18 02:47 04/26/18 02:47 04/26/18 02:47 04/26/18 02:47 Intake & Output 04/25/18 04/26/18 04/27/18 06:59 06:59 06:59 Intake Total 2156 1110 Balance 2156 1110 Weight 74.8 kg 75.2 kg Musculoskeletal exam: PRESENT: other - Left knee: Moderate effusion. Range of motion 5 degrees - 90 degrees pain with terminal flexion. No calf tenderness. No streaking erythema. Intact plantar flexion/dorsiflexion. Results Laboratory Results: 04/25/18 09:16 04/25/18 13:40 04/24/18 04/25/18 04/25/18 06:08 09:16 13:40 WBC 9.7 RBC 3.59 L Hgb 9.0 L Hct 27.4 L MCV 76 L MCH 25.0 L MCHC 32.7 RDW 16.8 H Plt Count 418 Creatinine 0.66 Est GFR ( Amer) > 60 Est GFR (Non-Af Amer) > 60 Iron < 10.1 L TIBC 277 % Saturation UNABLE TO CALCULATE Ferritin 128.00 Vitamin B12 233.0 L Folate 5.98 04/21/18 10:44 Knee - Left Gram Stain - Final 04/21/18 10:44 Knee - Left Wound Culture - Final Staphylococcus Aureus Staph Coagulase Negative No Anaerobic Organisms Impressions: Guidance Fluoroscopy 04/25/18 00:00 IMPRESSION: SUCCESSFUL PLACEMENT OF A 5 FR DUAL LUMEN 47 CM PICC IN THE LEFT BASILIC VEIN. Interventional Vascular Procedure 04/25/18 00:00 IMPRESSION: SUCCESSFUL PLACEMENT OF A 5 FR DUAL LUMEN 47 CM PICC IN THE LEFT BASILIC VEIN. PICC Line Insertion 04/25/18 00:00 IMPRESSION: SUCCESSFUL PLACEMENT OF A 5 FR DUAL LUMEN 47 CM PICC IN THE LEFT BASILIC VEIN. Assessment & Plan - Diagnosis (1) Knee hemarthrosis, left Is this a current diagnosis for this admission?: Yes Plan: Status post I&D left septic arthritis. Patient cultures are susceptible to Levaquin patient has been started on IV Levaquin daily as per Dr. Melton's recommendation. Patient has PICC line in place. Unfortunately he is unable to obtain IV antibiotics at home thus will require antibiotics in the hospital according to discharge planning this will begin on Saturday. Thus patient will receive IV antibiotic dose today and will move his IV antibiotic dose to earlier in the morning tomorrow so he may be discharged home. Appreciate hematology workup patient is to follow-up as an outpatient.
[2018-04-26] MEDS: VANCOMYCIN HCL 750 MG in DEXTROSE 5%-WATER 250 ML IV SCH (09:12)
[2018-04-26] MEDS: LISINOPRIL 10 MG TABLET PO SCH (09:25)
[2018-04-26] MEDS: AMLODIPINE BESYLATE 10 MG TABLET PO SCH (09:25)
[2018-04-26] MEDS: PRENATAL VITAMIN W DHA CAPSULE PO SCH (09:25)
[2018-04-26] MEDS: SENNOSIDES/DOCUSATE 8.6-50 MG 1 EACH TABLET PO SCH ×3 (09:25→21:25)
[2018-04-26] MEDS: HYDROCHLOROTHIAZIDE 25 MG TABLET PO SCH (09:25)
[2018-04-26] MEDS: ASPIRIN 81 MG TABLET, ENT COATED PO SCH (09:25)
[2018-04-26] MEDS: LEVOFLOXACIN 750 MG/D5W RTU 750 MG/150 ML RTUPB IV SCH (09:26)
[2018-04-26] MEDS: ATENOLOL 50 MG TABLET PO SCH ×2 (09:26→21:32)
[2018-04-26] MEDS: NORMAL SALINE 10 ML SDV (SCHEDULED) IV SCH ×2 (10:07→21:28)
[2018-04-26] MEDS: MORPHINE SULFATE 10 MG/ML INJ IV PRN (15:19)
[2018-04-27] MEDS: MORPHINE SULFATE 10 MG/ML INJ IV PRN (02:19)
[2018-04-27] MEDS: LANSOPRAZOLE 30 MG TAB.RAP.DR PO SCH (06:53)
[2018-04-27] MEDS: OXYCODONE HCL IR 5 MG TABLET PO PRN (07:22)
[2018-04-27] MEDS: LEVOFLOXACIN 750 MG/D5W RTU 750 MG/150 ML RTUPB IV SCH (08:20)
[2018-04-27] MEDS: NORMAL SALINE 10 ML SDV (SCHEDULED) IV SCH (08:20)
[2018-04-27] MEDS: ASPIRIN 81 MG TABLET, ENT COATED PO SCH (08:21)
[2018-04-27] MEDS: HYDROCHLOROTHIAZIDE 25 MG TABLET PO SCH (08:21)
[2018-04-27] MEDS: AMLODIPINE BESYLATE 10 MG TABLET PO SCH (08:25)
[2018-04-27] MEDS: LISINOPRIL 10 MG TABLET PO SCH (08:25)
[2018-04-27] MEDS: PRENATAL VITAMIN W DHA CAPSULE PO SCH (08:27)
[2018-04-27] MEDS: ATENOLOL 50 MG TABLET PO SCH (08:31)
--- NOTE | 2018-04-27 09:18 | PDOC PROGRESS REPORT ---
Subjective Progress Note for:: 04/27/18 Subjective:: Patient lying in bed comfortably. States his knee pain is notably improved has been able to ambulate more and has begun range of motion exercises. Denies fever chills or sweats. Reason For Visit: PYARTHROSIS LEFT KNEE Physical Exam Vital Signs: Temp Pulse Resp BP Pulse Ox 98.6 F 79 19 125/75 100 04/27/18 07:27 04/27/18 07:27 04/27/18 07:27 04/27/18 07:27 04/27/18 07:27 Intake & Output 04/26/18 04/27/18 04/28/18 06:59 06:59 06:59 Intake Total 1110 1738 Balance 1110 1738 Weight 75.2 kg Musculoskeletal exam: PRESENT: other - Left knee: Dressing clean/dry/intact no erythema or drainage. Moderate effusion. Knee range of motion 5 degrees - 90 degrees. Pain with terminal flexion. No calf tenderness. Intact plantar flexion/dorsiflexion. Results Laboratory Results: 04/25/18 09:16 04/25/18 13:40 Impressions: Guidance Fluoroscopy 04/25/18 00:00 IMPRESSION: SUCCESSFUL PLACEMENT OF A 5 FR DUAL LUMEN 47 CM PICC IN THE LEFT BASILIC VEIN. Interventional Vascular Procedure 04/25/18 00:00 IMPRESSION: SUCCESSFUL PLACEMENT OF A 5 FR DUAL LUMEN 47 CM PICC IN THE LEFT BASILIC VEIN. PICC Line Insertion 04/25/18 00:00 IMPRESSION: SUCCESSFUL PLACEMENT OF A 5 FR DUAL LUMEN 47 CM PICC IN THE LEFT BASILIC VEIN. Assessment & Plan - Diagnosis (1) Knee hemarthrosis, left Is this a current diagnosis for this admission?: Yes
[2018-04-27] MEDS: SENNOSIDES/DOCUSATE 8.6-50 MG 1 EACH TABLET PO SCH (09:54)
[2018-04-27 11:32] VITALS: BP 116/71
--- NOTE | 2018-05-02 06:10 | PDOC DISCHARGE SUMMARY ---
General - Admit/Disc Date/PCP Admission Date/Primary Care Provider: 04/21/18 07:[facility] Discharge Date: 05/02/18 - Discharge Diagnosis (1) Knee hemarthrosis, left Is this a current diagnosis for this admission?: Yes (2) Anemia Is this a current diagnosis for this admission?: Yes - Additional Information Resuscitation Status: Full Code Discharge Diet: As Tolerated Discharge Activity: Activity As Tolerated, Balance Activity w/Rest Home Medications: Amlodipine Besylate 10 mg PO DAILY 09/17/17 Atenolol 100 mg PO BID 09/17/17 Etodolac 500 mg PO BID 09/17/17 Hydrochlorothiazide 25 mg PO DAILY 09/17/17 Lisinopril 80 mg PO DAILY 09/17/17 History of Present Illness History of Present Illness: PAOLO ALEXANDER is a 62 year old male Patient is a 62-year-old black male with a ongoing left knee deformity pain and swelling. He is admitted for elective arthrotomy, good deep cultures and potential knee arthroplasty if there is no evidence of infection. Hospital Course Hospital Course: Patient is taken to the operating room where intraoperative frozen sections consistent with acute inflammation. A decision was made to abort the knee arthroplasty. A aggressive synovectomy was performed followed by implantation of calcium sulfate beads containing vancomycin. Subsequent cultures are consistent with MSSA. Physical Exam Vital Signs: Temp Pulse Resp BP Pulse Ox 37.0 C 79 19 116/71 100 04/27/18 11:29 04/27/18 11:29 04/27/18 11:29 04/27/18 11:29 04/27/18 11:29 General appearance: PRESENT: mild distress, thin Head exam: PRESENT: normocephalic Respiratory exam: PRESENT: unlabored Cardiovascular exam: PRESENT: RRR Pulses: PRESENT: +1 pedal pulses bilateral GI/Abdominal exam: PRESENT: soft Rectal exam: PRESENT: deferred Musculoskeletal exam: PRESENT: other - Left knee dressing clean dry and intact. Distal neurovascular examination is intact. Results Laboratory Results: 04/25/18 09:16 04/25/18 13:40 Impressions: Guidance Fluoroscopy 04/25/18 00:00 IMPRESSION: SUCCESSFUL PLACEMENT OF A 5 FR DUAL LUMEN 47 CM PICC IN THE LEFT BASILIC VEIN. Interventional Vascular Procedure 04/25/18 00:00 IMPRESSION: SUCCESSFUL PLACEMENT OF A 5 FR DUAL LUMEN 47 CM PICC IN THE LEFT BASILIC VEIN. PICC Line Insertion 04/25/18 00:00 IMPRESSION: SUCCESSFUL PLACEMENT OF A 5 FR DUAL LUMEN 47 CM PICC IN THE LEFT BASILIC VEIN. Status: Imported from PACS Qualifiers - * PATIENT BEING DISCHARGED WITH ANY OF THE FOLLOWING DIAGNOSIS: No VTE patient discharged on overlapping Therapy?: Yes Plan Discharge Plan: Patient be discharged home on 2 weeks of IV Levaquin. Follow-up with Dr. Melton [facility] for surgery for staple removal. Time Spent: Less than 30 Minutes
== END 2018-04-27 12:33 | disposition home or self-care (01) | DRG 489 ==
LOC: INOR 07:27 → 4S 12:59
PROVIDERS: ADMIT Orthopaedic Surgery; ATTEND Orthopaedic Surgery
PROC: 3E0U029 Introduction of Other Anti-infective into Joints, Open Approach (ICD-10-PCS; 2018-04-21)
PROC: 0SBD0ZZ Excision of Left Knee Joint, Open Approach (ICD-10-PCS; principal; 2018-04-21 10:00)
PROC: 30233N1 Transfusion of Nonautologous Red Blood Cells into Peripheral Vein, Percutaneous Approach (ICD-10-PCS; 2018-04-24)
PROC: 02HV33Z Insertion of Infusion Device into Superior Vena Cava, Percutaneous Approach (ICD-10-PCS; 2018-04-25)
PROC: B5181ZA Fluoroscopy of Superior Vena Cava using Low Osmolar Contrast, Guidance (ICD-10-PCS; 2018-04-25)
PROC: B548ZZA Ultrasonography of Superior Vena Cava, Guidance (ICD-10-PCS; 2018-04-25)
DX: M25.062 Hemarthrosis, left knee (principal); M65.9 Synovitis and tenosynovitis, unspecified; B95.61 Methicillin susceptible Staphylococcus aureus infection as the cause of diseases classified elsewhere; D64.9 Anemia, unspecified; M17.12 Unilateral primary osteoarthritis, left knee; I10 Essential (primary) hypertension; Z79.899 Other long term (current) drug therapy; F17.210 Nicotine dependence, cigarettes, uncomplicated; Z86.73 Personal history of transient ischemic attack (TIA), and cerebral infarction without residual deficits
CPT/HCPCS: 01400; 36415; 36430; 36569; 76937; 77001; 80048; 80202; 82272; 82565; 82607; 82728; 82746; 83540; 83550; 84132; 85027; 85652; 86140; 86850; 86900; 86901; 86920; 87070; 87075; 87077; 87186; 87205; 88305; 88331; 94799; C1713; C9359; J0131; J0690; J1100; J1200; J1642; J1741; J1956; J2250; J2270; J2405; J2704; J3010; J3370; J3490; J7050; J7060; P9016

== ENCOUNTER → 2018-05-13 | Outpatient (CLI) | payer OTHER ==
[2018-05-13 09:14] LABS: ABSOLUTE EOSINOPHILS # (AUTO) 0.2 10^3/uL (0.0-0.6); ABSOLUTE LYMPHOCYTES (AUTO) 1.7 10^3/uL (0.5-4.7); ABSOLUTE MONOCYTES (AUTO) 0.5 10^3/uL (0.1-1.4); ABSOLUTE NEUT (AUTO) 4.9 10^3/uL (1.7-8.2); BASOPHILS % (AUTO) 0.5 % (0-2); EOSINOPHILS % (AUTO) 2.9 % (0-6); HEMATOCRIT 33.1 % (37.9-51.0); HEMOGLOBIN 10.8 g/dL (13.5-17.0); LYMPHOCYTES % (AUTO) 22.7 % (13-45); MEAN CORPUSCULAR HEMOGLOBIN 25.7 pg (27.0-33.4); MEAN CORPUSCULAR HGB CONC 32.6 g/dL (32.0-36.0); MEAN CORPUSCULAR VOLUME 79 fl (80-97); MONOCYTES % (AUTO) 7.5 % (3-13); PLATELET COUNT 395 10^3/uL (150-450); RED CELL DISTRIBUTION WIDTH 19.4 % (11.5-14.0); SEGMENTED NEUTROPHILS % (AUTO) 66.4 % (42-78); TOTAL CELLS COUNTED % (AUTO) 100 %; WHITE BLOOD COUNT 7.3 10^3/uL (4.0-10.5)
[2018-05-13 09:26] LABS: ANION GAP 10 (5-19); BLOOD UREA NITROGEN 22 mg/dL (7-20); C-REACTIVE PROTEIN 16.7 mg/L (<10.0); CALCIUM 9.9 mg/dL (8.4-10.2); CARBON DIOXIDE 29 mmol/L (22-30); CHLORIDE 103 mmol/L (98-107); GLUCOSE 86 mg/dL (75-110); POTASSIUM 4.2 mmol/L (3.6-5.0)
[2018-05-13 09:57] LABS: ERYTHROCYTE SEDIMENTATION RATE 81 mm/hr (0-20)
== END ==
LOC: OD 07:57
PROVIDERS: ATTEND Orthopaedic Surgery
DX: M71.22 Synovial cyst of popliteal space [Baker], left knee (principal)
CPT/HCPCS: 36415; 80048; 85025; 85652; 86140

== ENCOUNTER → 2018-05-30 | Outpatient (CLI) | payer OTHER, MEDICARE ==
[2018-05-30 09:59] LABS: ABSOLUTE EOSINOPHILS # (AUTO) 0.1 10^3/uL (0.0-0.6); ABSOLUTE LYMPHOCYTES (AUTO) 1.2 10^3/uL (0.5-4.7); ABSOLUTE MONOCYTES (AUTO) 0.5 10^3/uL (0.1-1.4); ABSOLUTE NEUT (AUTO) 4.7 10^3/uL (1.7-8.2); BASOPHILS % (AUTO) 0.4 % (0-2); EOSINOPHILS % (AUTO) 1.2 % (0-6); HEMATOCRIT 32.7 % (37.9-51.0); HEMOGLOBIN 10.7 g/dL (13.5-17.0); LYMPHOCYTES % (AUTO) 18.7 % (13-45); MEAN CORPUSCULAR HEMOGLOBIN 26.2 pg (27.0-33.4); MEAN CORPUSCULAR HGB CONC 32.7 g/dL (32.0-36.0); MEAN CORPUSCULAR VOLUME 80 fl (80-97); MONOCYTES % (AUTO) 8.3 % (3-13); PLATELET COUNT 382 10^3/uL (150-450); RED BLOOD COUNT 4.09 10^6/uL (4.35-5.55); RED CELL DISTRIBUTION WIDTH 19.3 % (11.5-14.0); SEGMENTED NEUTROPHILS % (AUTO) 71.4 % (42-78); TOTAL CELLS COUNTED % (AUTO) 100 %; WHITE BLOOD COUNT 6.5 10^3/uL (4.0-10.5)
[2018-05-30 10:08] LABS: ALANINE AMINOTRANSFERASE 12 U/L (21-72); ALKALINE PHOSPHATASE 75 U/L (38-126); ANION GAP 9 (5-19); ASPARTATE AMINO TRANSFERASE 21 U/L (17-59); BILIRUBIN,DIRECT 0.4 mg/dL (0.0-0.4); BILIRUBIN,TOTAL 0.5 mg/dL (0.2-1.3); BLOOD UREA NITROGEN 16 mg/dL (7-20); C-REACTIVE PROTEIN 63.5 mg/L (<10.0); CARBON DIOXIDE 30 mmol/L (22-30); CHLORIDE 105 mmol/L (98-107); GLUCOSE 90 mg/dL (75-110); POTASSIUM 3.6 mmol/L (3.6-5.0); SODIUM 143.9 mmol/L (137-145); TOTAL PROTEIN 8.2 g/dL (6.3-8.2)
[2018-05-30 10:42] LABS: ERYTHROCYTE SEDIMENTATION RATE 99 mm/hr (0-20)
== END ==
LOC: OD 08:11
PROVIDERS: ATTEND Orthopaedic Surgery
DX: Z96.659 Presence of unspecified artificial knee joint (principal)
CPT/HCPCS: 36415; 80053; 85025; 85652; 86140

== ENCOUNTER → 2018-10-27 | Outpatient (CLI) | payer OTHER, MEDICARE ==
[2018-10-27 11:51] LABS: ABSOLUTE EOSINOPHILS # (AUTO) 0.1 10^3/uL (0.0-0.6); ABSOLUTE LYMPHOCYTES (AUTO) 1.2 10^3/uL (0.5-4.7); ABSOLUTE MONOCYTES (AUTO) 0.3 10^3/uL (0.1-1.4); BASOPHILS % (AUTO) 0.4 % (0-2); EOSINOPHILS % (AUTO) 1.1 % (0-6); HEMATOCRIT 30.8 % (37.9-51.0); HEMOGLOBIN 9.9 g/dL (13.5-17.0); LYMPHOCYTES % (AUTO) 25.8 % (13-45); MEAN CORPUSCULAR HEMOGLOBIN 25.2 pg (27.0-33.4); MEAN CORPUSCULAR HGB CONC 32.2 g/dL (32.0-36.0); MEAN CORPUSCULAR VOLUME 78 fl (80-97); MONOCYTES % (AUTO) 6.4 % (3-13); PLATELET COUNT 398 10^3/uL (150-450); RED BLOOD COUNT 3.93 10^6/uL (4.35-5.55); RED CELL DISTRIBUTION WIDTH 18.1 % (11.5-14.0); SEGMENTED NEUTROPHILS % (AUTO) 66.3 % (42-78); TOTAL CELLS COUNTED % (AUTO) 100 %; WHITE BLOOD COUNT 4.5 10^3/uL (4.0-10.5)
[2018-10-27 12:27] LABS: ANION GAP 11 (5-19); BLOOD UREA NITROGEN 15 mg/dL (7-20); C-REACTIVE PROTEIN 11.9 mg/L (<10.0); CALCIUM 9.4 mg/dL (8.4-10.2); CARBON DIOXIDE 26 mmol/L (22-30); CHLORIDE 104 mmol/L (98-107); GLUCOSE 80 mg/dL (75-110); SODIUM 140.5 mmol/L (137-145)
== END ==
LOC: OD 10:25
PROVIDERS: ATTEND Orthopaedic Surgery
DX: M25.562 Pain in left knee (principal)
CPT/HCPCS: 36415; 80048; 85025; 85652; 86140

== ENCOUNTER → 2019-11-04 | Outpatient (CLI) | payer OTHER, MEDICARE ==
[2019-11-04 11:41] VITALS: BP 118/75
--- NOTE | 2019-11-04 11:41 | ER RDC ASSESSMENT REPORT ---
Intake - In the Last 14 days Have you traveled outside [place]?: No Have you been in close contact with someone CONFIRMED: No Worked in Healthcare?: No - Symptoms Subjective Fever([place] feverish): No Chills: No Muscule Aches: No Runny Nose: No Sore Throat: No Cough (New or worsening chronic cough): No Shortness of breath: No Nausea or Vomiting: No Headache: No Abdominal Pain: No Diarrhea(3 or more loose stools in last 24 hours): No - Do you have any of the following Chronic lung disease: Asthma or emphysema or COPD: No Cystic Fibrosis: No Diabetes: No High Blood Pressure: Yes Cardiovascular Disease: Yes Chronic Kidney Disease: No Chronic Liver Disease: No Chronic blood disorder like Sickle Cell Disease: No Weak immune system due to disease or medication: No Neurologic condition that limits movement: No Developmental delay - Moderate to Severe: No Recent (within past 2 weeks) or current : No Morbid Obesity (>100 pounds over ideal weight): No Obesity Comment: Height 5 foot 1 inch weight 163 pounds - Objective Temperature: 96.6 F Pulse Rate: 70 Respiratory Rate: 20 Blood Pressure: 118/75 O2 Sat by Pulse Oximetry: 96 Objective: Given above, testing performed: If Testing Performed: Test Specimen Type Sent to General - General Information source: Patient Notes: Patient here at [facility] for cover testing. Patient here also although symptomatic patient is asymptomatic and just here out of concern requesting for testing for COVID. Patient denies being exposed to anybody known for COVID at this time. - Related Data Allergies/Adverse Reactions: No Known Allergies Allergy (Verified 03/31/18 14:04) Past Medical History - General Information source: Patient - Social History Smoking Status: Never Smoker Family History: None - Past Medical History Cardiac Medical History: Reports: Hx Hypertension Denies: Hx Atrial Fibrillation, Hx Congestive Heart Failure, Hx Coronary Artery Disease, Hx Heart Attack, Hx Hypercholesterolemia, Hx Peripheral Vascular Disease, Hx Heart Murmur Pulmonary Medical History: Denies: Hx Asthma, Hx Bronchitis, Hx COPD, Hx Pneumonia, Hx Sleep Apnea Neurological Medical History: Denies: Hx Cerebrovascular Accident, Hx Seizures, Hx Parkinson's Disease Endocrine Medical History: Denies: Hx Hyperthyroidism, Hx Hypothyroidism Renal/ Medical History: Denies: Hx Kidney Stones GI Medical History: Denies: Hx Gastroesophageal Reflux Disease Musculoskeletal Medical History: Reports Hx Arthritis - LOWER BACK, GENERALIZED, knees, Denies Hx Fibromyalgia, Denies Hx Multiple Sclerosis, Denies Hx Muscular Dystrophy Psychiatric Medical History: Denies: Hx Dementia Traumatic Medical History: Denies: Hx Fractures Past Surgical History: Reports: Hx Herniorrhaphy. Denies: Hx Appendectomy, Hx Bowel Surgery, Hx Cholecystectomy, Hx Coronary Artery Bypass Graft, Hx Gastric Bypass Surgery, Hx Pacemaker, Hx Tonsillectomy Physical Exam - General General appearance: Appears well, Alert In distress: None Notes: PHYSICAL EXAMINATION: GENERAL: Well-appearing and in no acute distress. HEAD: Atraumatic, normocephalic. EYES: sclera anicteric, conjunctiva are normal. ENT: nares patent. Moist mucous membranes. NECK: Normal range of motion, supple without lymphadenopathy LUNGS: CTAB and equal. No wheezes rales or rhonchi. Resp even and unlabored. Lung sounds clear. HEART: Regular rate and rhythm without murmurs ABDOMEN: Soft, nontender, normal bowel sounds, no guarding. EXTREMITIES: No cyanosis. NEUROLOGICAL: Normal speech. PSYCH: Normal mood, normal affect. SKIN: Warm, Dry, normal turgor, Diagnostic Results Laboratory Results: Pending cover testing results. Patient instructions regarding COVID to include: As a person under investigation for Covid 19, the [place] department of Health and Human Services, division of public health advises you to adhere to the following guidance until your test results are reported to you. If your test result is positive, you will receive additional information from your provider and your local health department at that time. Remain at home until you are cleared by the health provider or public health authorities. Keep a log of visitors to your home, notify any visitors to your home of your isolation status. If you plan to move to a new address or leave the county, notify the local health department in your County. Call your doctor or seek care if you have an urgent medical need. Before seeking medical care, call ahead to get instructions from the provider before arriving at the medical office clinic or hospital. Notify them that you are being tested for the virus that causes Covid 19 so that arrangements can be made, as necessary, to prevent transmission to others in the healthcare setting. Next, notify the local health department in your county. If a medical emergency arises and you need to call 911, inform the first responders that you are being tested for the virus that causes Covid 19. Next, notify the local health department in your county. Patient Education/Counseling Counseling/Education: Patient presents with upper respiratory symptoms worrisome for possible Covid 19. Patient does not have emergency worring symptoms such as difficulty breathing, shortness of breath, chest pain, pressure, confusion or cyanosis. Patient appears suitable for discharge. [facility] To ED for any change in condition or worsening symptoms. Patient's vital signs are stable and patient is nontoxic in appearance. Good return precautions have been discussed with patient, patient verbalized understanding and is agreeable with discharge plan of care at this time. RDC Discharge - Discharge Clinical Impression: Encounter for screening laboratory testing for COVID-19 virus in asymptomatic patient Condition: Stable Disposition: Home; Selfcare
== END ==
LOC: RDC 10:48
PROVIDERS: ATTEND Nurse Practitioner Family
DX: Z11.59 Encounter for screening for other viral diseases (principal); I10 Essential (primary) hypertension; M13.89 Other specified arthritis, multiple sites
CPT/HCPCS: 87635; C9803; 99201; 99211